=== PATIENT | female | born 1955 | race African-American/Black ===

== ENCOUNTER 2020-01-26 07:05 | Inpatient (IN) | payer OTHER ==
[~2020-01-26] VITALS: Ht 157.5 cm; Wt 79.4 kg
[2020-01-26 07:07] VITALS: BP 74/41
[2020-01-26 07:31] LABS: ABSOLUTE NEUTROPHILS 8.1 thou/uL (1.4-8.2); BASOPHILS 0.5 % (0.0-2.0); EOSINOPHILS 0.9 % (0.0-3.0); HEMATOCRIT 40.9 % (37.0-47.0); HEMOGLOBIN 13.8 gm/dL (12.0-15.0); LYMPHOCYTES 16.3 % (24.0-44.0); MCH 32.7 pg (26.0-34.0); MCHC 33.8 g/dL (28.0-37.0); MCV 96.7 fL (80.0-100.0); MONOCYTES 5.5 % (1.0-8.0); PLATELET COUNT 229 thou/uL (150-400); POLYS 76.8 % (36.0-66.0); RBC 4.23 mil/uL (4.20-5.00); RDW 14.4 % (10.5-14.5); WBC 10.6 thou/uL (4.0-11.0)
[2020-01-26 07:48] LABS: ANION GAP 8 mmol/L (7-16); BUN 21 mg/dL (7-18); CALCIUM 8.8 mg/dL (8.5-10.1); CHLORIDE 99 mmol/L (98-107); CO2 27 mmol/L (21-32); GLUCOSE 110 mg/dL (74-106); POTASSIUM 4.2 mmol/L (3.5-5.1); SODIUM 134 mmol/L (136-145)
[2020-01-26 07:53] LABS: ALBUMIN 3.5 g/dL (3.4-5.0); SGOT 24 U/L (15-37); SGPT 20 U/L (30-65); TOTAL BILIRUBIN 0.4 mg/dL (0.2-1.0); TOTAL PROTEIN 7.5 g/dL (6.4-8.2); TROPONIN-I <0.06 ng/mL (<0.06)
[2020-01-26] MEDS ORDERED: LORAZEPAM 0.50.5 MG PO (08:01)
[2020-01-26] MEDS ORDERED: ULTRAM50 MG PO (08:01)
[2020-01-26] MEDS ORDERED: AMARYL1 MG PO (08:02)
[2020-01-26] MEDS ORDERED: [UNRECOGNIZED DRUG - OTHER] (08:02)
[2020-01-26] MEDS ORDERED: PRAVACHOL 20 MG20 M1 PO (08:03)
[2020-01-26] MEDS ORDERED: PROAIR HFA8.5 GM (08:04)
[2020-01-26] MEDS ORDERED: OXYGEN (08:05)
[2020-01-26] MEDS ORDERED: ALBUTEROL2.5 MG/0.5 (08:05)
[2020-01-26] MEDS ORDERED: FLAX OIL1000 MG PO (08:06)
--- NOTE | 2020-01-26 08:59 | EKG ---
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
--- NOTE | 2020-01-26 12:21 | NUR ---
STRAIGHT CATH PERFORMED X 2 WITH NO URINE RETURN
[2020-01-26 15:45] LABS: URINE BILIRUBIN NEGATIVE (Negative); URINE BLOOD NEGATIVE (Negative); URINE CLARITY CLEAR; URINE COLOR YELLOW; URINE GLUCOSE-RANDOM* NEGATIVE (Negative); URINE KETONES NEGATIVE (Negative); URINE LEUKOCYTES-REFLEX NEGATIVE (Negative); URINE NITRITE-REFLEX NEGATIVE (Negative); URINE PROTEIN (DIPSTICK) NEGATIVE (Negative); URINE SPECIFIC GRAVITY <= 1.005 (1.005-1.035)
[2020-01-26 16:24] VITALS: BP 98/51
[2020-01-26 16:57] VITALS: BP 109/55
[2020-01-26 18:05] VITALS: BP 102/46
--- NOTE | 2020-01-26 19:22 | NUR ---
Received pt from [facility] ED, admission was done by admit nurse. endorsed to the night warehouse selector.
--- NOTE | 2020-01-26 19:58 | NUR ---
PATIENT ADMITTED FROM ER WITH HYPOTENSION, SYNCOPE, AND L3 FRACTURE. ARRIVED ON THE UNIT AT 1745. PATIENT ALERT AND ANXIOUS, AND C/O PAIN WITH LOW BACK AREA 10/10, THIS RN GAVE TORADOL 30MG IV. PATIENT STATES NO RELIEF, WILL REPORT TO JANNIE/BURKE/PRIMARY NURSE. PATIENT HAS RIGHT AC IV IN PLACE WITH NS AT 125CC/HR. X 1 BAG. ADMISSION DONE EXCEPT POC. PATIENT RECEIVED DINNER TRAY. REPORT GIVEN TO JANNIE/BURKE.
--- NOTE | 2020-01-26 22:19 | NUR ---
0.25ML DILAUDID ADMIN AND .75 ML WASTED WITH GHASSAN BOWLES RN PT NO LONGER IN PYXIS AT TIME OF WASTE
--- NOTE | 2020-01-26 22:20 | NUR ---
0.75ML DILAUDID WASTED WITH NURSE MAR FRANKS. PATIENT NO LONGER IN PYXIS AT TIME OF WASTE.
[2020-01-27 02:07] LABS: GLYCOHEMOGLOBIN (HGB A1C) 5.8 % (4.8-5.6)
[2020-01-27 04:30] VITALS: BP 119/46
--- NOTE | 2020-01-27 06:02 | NUR ---
ASSUMED PT CARE AROUND 1930. VSS. C/O RAC IV SITE PAIN. NO S/S INFILTRATION OR PHELEBITIS NOTED. PT SCREAMING TO TAKE THE IV OUT. TOOK THE IV OUT AND REPORTED TO OSCAR HURT. NNO AT THIS TIME. NO S/S ACUTE DISTRESS NOTED OR REPORTED AT THIS TIME. WILL CONT TO MONITOR FOR ANY CHABES IN CONDITION.
[2020-01-27 07:49] VITALS: BP 110/55
[2020-01-27 08:43] LABS: ABSOLUTE NEUTROPHILS 12.5 thou/uL (1.4-8.2); BASOPHILS 0.2 % (0.0-2.0); HEMATOCRIT 43.5 % (37.0-47.0); HEMOGLOBIN 14.3 gm/dL (12.0-15.0); LYMPHOCYTES 8.8 % (24.0-44.0); MCH 31.9 pg (26.0-34.0); MCHC 32.8 g/dL (28.0-37.0); MCV 97.4 fL (80.0-100.0); PLATELET COUNT 213 thou/uL (150-400); RBC 4.47 mil/uL (4.20-5.00); RDW 14.8 % (10.5-14.5); WBC 14.5 thou/uL (4.0-11.0)
[2020-01-27 08:50] LABS: CALCIUM 9.2 mg/dL (8.5-10.1); CREATININE 0.8 mg/dL (0.6-1.0); MAGNESIUM 1.8 mg/dL (1.8-2.4); POTASSIUM 4.3 mmol/L (3.5-5.1)
--- NOTE | 2020-01-27 10:47 | NUR ---
PT ADMITTED RELATED TO HYPOTENSION/SYNCOPE/L3 FRACTURE. CM REVIEWED CHART AND SPOKE WITH CARE TEAM. CM CALLED AND SPOKE WITH PT AT BEDSIDE THIS DAY. PT APPEARED TO BE A&O X4. CM ROLE INTRODUCED. PT INDICATED SHE LIVES ALONE IN AN APARTMENT WITH NO STEPS TO ENTER OR INSIDE. PT INDICATED SHE HAS A CANE, 4WW, AND O2 FOR USE AT HOME. PT INDICATED SHE HAS HCBS [place] 3HRS 7DAYS A WEEK THROUGH [facility]. SHE INDICATED NO HH HX. PT'S PCP IS DR. MATHEWS AT [facility]. 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 SHE INDICATED SHE PLANS TO RETURN HOME ONCE MEDICALLY STABLE. CM TO FOLLOW INDICATED WITH DC PLANNING.
--- NOTE | 2020-01-27 15:03 | NUR ---
NEURO CONSULTED AND ORDERED BRACE FOR WHEN PT IS UP. PT AND OT AWAITING BRACE TO EVAL PT. CM TO FOLLOW INDICATED WITH DC PLANNING.
--- NOTE | 2020-01-27 15:21 | NUR ---
Assessment completed.vss.Pt in bed resting .Am meds given and well tolerated. Pt c/o severe back pain rated 10/10.Both po and iv given at different time with partial relief.Received call from [facility] clinic.Face sheet and dr's order for lso brace faxed.Fall precautions in place.Will continue to monitor.
[2020-01-27 16:49] VITALS: BP 126/75
[2020-01-27 19:15] VITALS: BP 146/85
[2020-01-28 04:45] VITALS: BP 133/67
[2020-01-28 06:44] LABS: AMP/METHAMP Negative (Negative); BARBITURATES Negative (Negative); BENZODIAZEPINES Negative (Negative); COCAINE Negative (Negative); METHADONE Negative (Negative); OPIATES Negative (Negative); PCP POSITIVE (Negative)
--- NOTE | 2020-01-28 07:17 | NUR ---
PROGRESS PT A/O X4 RATES PAIN AN 8 TAKING FENTANYL 50 MCG WITH EFFECT. PT ABLE TO REPOSITION SELF BACK BRACE IN PLACE CONTINUE POC.
[2020-01-28 07:35] VITALS: BP 129/65
[2020-01-28 16:00] VITALS: BP 126/69
--- NOTE | 2020-01-28 16:05 | NUR ---
PT AND OT ASSESSED. OT INIDICATED ONGOING ASSESSMENT INIDICATED. PT STATED WOULD LIKELY BE ABLE TO RETURN HOME WITH HOME HEALTH OR OP THERAPY. CM TO FOLLOW INDICATED WITH DC PLANNING.
--- NOTE | 2020-01-28 18:39 | NUR ---
Received awake on bed. Due medications given as prescribed, able to swallow meds w/o difficulty. A+Ox4. On regular diet- tolerating well; no nausea, no vomiting and no abdominal pain. On telemetry monitoring- SR; no complaints of chest pain, crushing sensation and heaviness feeling. On room air. With osuna in place, draining well- output measured and recorded accordingly; continent of bowels- charted. With SL at L FA- intact and flushing well. With back brace ordered- to wear once out of bed. Pt seen by physical therapist today- able to sit out on chair. On blood sugar monitoring- taken and recorded accordingly. Complained of pain, due PRN pain medication given as prescribed. Pt keen to go home. To continue monitoring patient.
[2020-01-28 19:25] VITALS: BP 134/75
[2020-01-29 06:00] VITALS: BP 134/57
--- NOTE | 2020-01-29 07:54 | NUR ---
PROGRESS PT A/O X 4 UP WITH SBA WALKER AND GB AND BACK BRACE. PT ABLE TO PUT ON AND TAKE OFF BRACE INDEPENDENTLY, ABLE TO GET IN AND OUT OF BED INDEPENDENTLY. TAKING 50 MCG'S FENTANYL FOR PAIN, DOESNT FEEL READY TO TRY ORAL PAIN MEDS AT THIS TIME BUT ENCOURAGED PT TO TRY TODAY SO SHE CAN GET HER PAIN UNDER CONTROL BEFORE DISCHARGE.
--- NOTE | 2020-01-29 07:56 | NUR ---
RAWLS ORDER FROM JAIRO HURT GATE KEEPER TO [facility] PER PT REQUESTS, RAWLS REMOVED AND PT VOIDED APPROXIMATELY 4 TIMES THROUGHOUT NIGHT LARGE VOLUMES OF URINE.
[2020-01-29 07:58] VITALS: BP 134/93
--- NOTE | 2020-01-29 12:10 | NUR ---
Received awake on bed. Due medications given as prescribed, able to swallow meds w/o difficulty. On room air. Vital signs stable. Assisted in ADLs. Tolerating diet well, no nausea, no vomiting and no abdominal pain noted. Complained of pain, due PRN pain meds given as prescribed. Able to go to the bathroom using walker, back brace on, gait belt and standby assist. Falls bundle in place. On telemetry, running SR- no chest pain, crushing sensation or heaviness feeling. With SL at L FA- intact and flushing well. On blood sugar monitoring, taken and recorded accordingly. Pt very keen to go home and with partial pain relief to pain medications- Dr Canales informed. To continue monitoring patient.
[2020-01-29] MEDS ORDERED: CLARITIN10 M2 PO (13:22)
[2020-01-29] MEDS ORDERED: MELATONIN5 M1 PO (13:22)
[2020-01-29] MEDS ORDERED: ACETAMINOPHEN325 M1 PO (13:22)
[2020-01-29] MEDS ORDERED: VITAMIN D325 MCG PO (13:22)
[2020-01-29] MEDS ORDERED: HYDROCODON-ACE1 EAC7 PO (13:22)
[2020-01-29] MEDS ORDERED: PANTOPRAZOLE SO40 M1 PO (13:22)
[2020-01-29] MEDS ORDERED: B-12500 MCG PO (13:22)
[2020-01-29] MEDS ORDERED: LIDOPATCH1 EACH TRANSDERM (13:22)
[2020-01-29] MEDS ORDERED: PREDNISONE 5 MG5 MG PO (13:22)
[2020-01-29] MEDS ORDERED: SINGULAIR 10 MG10 M1 PO (13:22)
[2020-01-29 14:12] VITALS: BP 134/93
[2020-01-29 15:18] VITALS: BP 134/93
--- NOTE | 2020-01-29 15:42 | NUR ---
CARE TEAM INDICATED THAT PT IS MEDICALLY STABLE TO DC HOME THIS DAY. NURSING WAS ORDERED. REFERRAL SENT TO [facility]. THEY ARE REVIEWING. PT IS TO RETURN HOME VIA SON IN PERSONAL VEHICLE. PT HAS BRACE TO BE WORK UPON DC. PT TO RESUME HCBS UPON DC. NO OTHER CM INTERVENTION INDICATED. CASE CLOSED.
--- NOTE | 2020-01-29 15:57 | NUR ---
PT DISCHARGING TODAY TO HOME WITH [facility] FAXED DC ORDERS/SUMMARY SPOKE WITH SRINIVASAN IN INTAKE SHE WILL NOTIFY PT TIME OF VISITS.
== END 2020-01-29 16:59 | disposition home health service (06) | DRG 552 ==
LOC: ER 07:05 → EROBS 11:48 → 4W 17:45
PROVIDERS: Emergency Medicine; Nurse Practitioner; ADMIT Internal Medicine
DX: S32.039A Unspecified fracture of third lumbar vertebra, initial encounter for closed fracture (principal); J44.1 Chronic obstructive pulmonary disease with (acute) exacerbation; I10 Essential (primary) hypertension; M19.90 Unspecified osteoarthritis, unspecified site; G89.29 Other chronic pain; M54.9 Dorsalgia, unspecified; E78.5 Hyperlipidemia, unspecified; M43.16 Spondylolisthesis, lumbar region; F17.210 Nicotine dependence, cigarettes, uncomplicated; L30.9 Dermatitis, unspecified; F19.10 Other psychoactive substance abuse, uncomplicated; Z71.51 Drug abuse counseling and surveillance of drug abuser; Z90.49 Acquired absence of other specified parts of digestive tract; Z79.899 Other long term (current) drug therapy; W18.39XA Other fall on same level, initial encounter; Y93.89 Activity, other specified; Y92.89 Other specified places as the place of occurrence of the external cause; Y99.8 Other external cause status
CPT/HCPCS: 10045

== ENCOUNTER → 2020-02-09 | Outpatient (CLI) | payer OTHER ==
[~2020-02-09] MED LIST: ACETAMINOPHEN325 M1 PO; ALBUTEROL2.5 MG/0.5; AMARYL1 MG PO; B-12500 MCG PO; CLARITIN10 M2 PO; FLAX OIL1000 MG PO; HYDROCODON-ACE1 EAC7 PO; LIDOPATCH1 EACH TRANSDERM; LORAZEPAM 0.50.5 MG PO; MELATONIN5 M1 PO; OXYGEN; PANTOPRAZOLE SO40 M1 PO; PRAVACHOL 20 MG20 M1 PO; PREDNISONE 5 MG5 MG PO; PROAIR HFA8.5 GM; SINGULAIR 10 MG10 M1 PO; ULTRAM50 MG PO; VITAMIN D325 MCG PO; [UNRECOGNIZED DRUG - OTHER]
== END ==
LOC: RAD 07:35
PROVIDERS: ATTEND Neurological Surgery
DX: M48.56XA Collapsed vertebra, not elsewhere classified, lumbar region, initial encounter for fracture (principal); M47.816 Spondylosis without myelopathy or radiculopathy, lumbar region